=== PATIENT | female | born 1985 | race Caucasian/White ===

== ENCOUNTER 2022-02-06 10:55 | Observation (INO) | payer OTHER ==
[~2022-02-06 10:55] MED LIST: Iopamidol 300 61% 100 ML VIAL FS ONE
[2022-02-06 11:32] LABS: Bilirubin Neg (Negative); Blood, Urine 10 (Negative); Glucose, Urine (Dipstick) Normal (Negative); Ketone, Urine Negative (Negative); Leukocyte 25 (Negative); Nitrite Negative (Negative); Protein, Urine (Dipstick) Negative (Neg-Trace)
[2022-02-06] MEDS ORDERED: Ketorolac Tromethamine 30 MG/ML VIAL ONE (11:33)
[2022-02-06] MEDS ORDERED: Ondansetron PF 4 MG/2 ML Vial ONE (11:33)
[2022-02-06 11:34] LABS: Clarity Hazy (Clear)
[2022-02-06 11:35] LABS: Pregnancy Test - Urine (BHCG) Negative (Negative); Pregu Control Background? CLEAR/WHITE (CLR/WHITE); Pregu Control Bar Appear? YES (CONTROL BAR)
[2022-02-06 11:38] LABS: Squamous Epithelial 0-3 HPF (0-3)
[2022-02-06 11:39] LABS: Bacteria/HPF 2+ HPF (None Seen); Mucous/LPF 2+ LPF (<2+)
[2022-02-06 11:47] LABS: #Basophils 0.1 10x3/uL (0.0-0.2); #Eosinphils 0.1 10x3/uL (0.0-0.5); #Monocytes 1.1 10x3/uL (0.0-1.1); #Neutrophils 6.8 10x3/uL (1.5-8.4); %Basophils 0.9 % (0.0-2.0); %Eosinophils 1.4 % (0.0-6.0); %Lymphocytes 10.3 % (18.0-47.0); %Monocytes 12.3 % (0.0-10.0); %Neutrophils 74.9 % (40.0-75.0); Hemoglobin 10.4 g/dL (12.0-15.5); Mean Corpuscular HGB CONC 31.7 g/dL (32.0-36.0); Mean Corpuscular Hemoglobin 24.5 pg (27.0-33.0); Mean Corpuscular Volume 77.4 fl (81.6-98.3); Mean Platelet Volume 9.2 fl (7.4-10.4); Platelet Count 372 10x3/uL (150-450); RBC Distribution Width 15.4 % (11.5-14.5); Red Blood Cell (RBC) Count 4.24 10x6/uL (3.90-5.03); White Blood Cell (WBC) Count 9.1 10x3/uL (3.5-10.5)
[2022-02-06 11:51] LABS: BHCG - Serum Negative (NEGATIVE)
[2022-02-06 11:52] LABS: Pregs Control Background? CLEAR/WHITE (CLR/WHITE); Pregs Control Bar Appear? YES (CONTROL BAR)
[2022-02-06 12:00] LABS: ALT (SGPT) 11 U/L (8-55); AST (SGOT) 19 U/L (5-34); Albumin 4.5 g/dL (3.5-5.0); Alkaline Phosphatase 41 U/L (40-110); Anion Gap 12 mmol/L (10-20); BUN (Urea Nitrogen) 9 mg/dL (7.0-18.7); Bilirubin, Total 0.4 mg/dL (0.2-1.2); Calc. Creatinine Clearance 0 mL/min (70-130); Calcium 8.9 mg/dL (7.8-10.44); Carbon Dioxide 26 mmol/L (22-29); Chloride 104 mmol/L (98-107); Estimated GFR 116; Globulin 2.7 g/dL (2.4-3.5); Glucose 99 mg/dL (70-105); Lipase 21 U/L (8-78); Potassium 3.7 mmol/L (3.5-5.1); Protein, Total 7.2 g/dL (6.0-8.3); Sodium 138 mmol/L (136-145)
[2022-02-06] MEDS ORDERED: Morphine 4 MG/ML VIAL ONE (12:37)
[2022-02-06 16:42] VITALS: TEMP 97.9
[2022-02-06 16:51] VITALS: BP 104/54
[2022-02-06 17:24] VITALS: BMI 23.3
[2022-02-06] MEDS ORDERED: FLU VACC QS2022-23(6MOS UP)/PF 60 MCG/0.5 ML SYRINGE IM ONE (17:30)
[2022-02-06] MEDS ORDERED: Ketorolac Tromethamine 30 MG/ML VIAL IM SCH (17:30)
== END 2022-02-06 17:44 | disposition home or self-care (01) ==
LOC: CSHERS 10:55 → CSHPP 16:22
PROVIDERS: ADMIT Obstetrics & Gynecology; ATTEND Student in an Organized Health Care Education/Training Program
DX: N83.201 Unspecified ovarian cyst, right side (principal); D50.8 Other iron deficiency anemias; N39.0 Urinary tract infection, site not specified; G43.909 Migraine, unspecified, not intractable, without status migrainosus; Z79.899 Other long term (current) drug therapy; Z88.8 Allergy status to other drugs, medicaments and biological substances; Z98.890 Other specified postprocedural states
CPT/HCPCS: 74177; 76856; 80053; 81003; 81015; 81025; 83690; 84703; 85025; 96374; 96375; G0378; J1885; J2270; J2405; Q9967

== ENCOUNTER 2022-02-07 00:39 | Observation (INO) | payer OTHER ==
[2022-02-07] MEDS ORDERED: Ondansetron ODT 4 MG TAB ONE (01:46)
[2022-02-07 02:05] LABS: #Basophils 0.1 10x3/uL (0.0-0.2); #Monocytes 0.7 10x3/uL (0.0-1.1); #Neutrophils 4.7 10x3/uL (1.5-8.4); %Basophils 0.8 % (0.0-2.0); %Eosinophils 0.5 % (0.0-6.0); %Lymphocytes 10.4 % (18.0-47.0); Hemoglobin 9.3 g/dL (12.0-15.5); Mean Corpuscular HGB CONC 31.5 g/dL (32.0-36.0); Mean Corpuscular Hemoglobin 24.4 pg (27.0-33.0); Mean Corpuscular Volume 77.4 fl (81.6-98.3); Mean Platelet Volume 8.9 fl (7.4-10.4); Platelet Count 281 10x3/uL (150-450); RBC Distribution Width 15.3 % (11.5-14.5); Red Blood Cell (RBC) Count 3.81 10x6/uL (3.90-5.03); White Blood Cell (WBC) Count 6.2 10x3/uL (3.5-10.5)
[2022-02-07 02:16] LABS: ALT (SGPT) 12 U/L (8-55); AST (SGOT) 19 U/L (5-34); Albumin 3.9 g/dL (3.5-5.0); Alkaline Phosphatase 37 U/L (40-110); Anion Gap 10 mmol/L (10-20); BUN (Urea Nitrogen) 8 mg/dL (7.0-18.7); Bilirubin, Total 0.4 mg/dL (0.2-1.2); Calc. Creatinine Clearance 0 mL/min (70-130); Calcium 8.5 mg/dL (7.8-10.44); Carbon Dioxide 25 mmol/L (22-29); Chloride 104 mmol/L (98-107); Estimated GFR 116; Globulin 2.4 g/dL (2.4-3.5); Glucose 140 mg/dL (70-105); Potassium 3.2 mmol/L (3.5-5.1); Protein, Total 6.3 g/dL (6.0-8.3); Sodium 136 mmol/L (136-145)
[2022-02-07] MEDS ORDERED: Ketorolac Tromethamine 30 MG/ML VIAL ONE (04:07)
[2022-02-07] MEDS ORDERED: Ondansetron PF 4 MG/2 ML Vial IVP PRN (10:02)
[2022-02-07] MEDS ORDERED: Ibuprofen 600 MG TAB PO PRN (10:10)
[2022-02-07 10:46] VITALS: BMI 23.3
[2022-02-07] MEDS ORDERED: Morphine 2 MG/ML VIAL SLOW IVP PRN (11:09)
[2022-02-07] MEDS: Lactated Ringer's 1,000 ML IV SCH (11:22)
[2022-02-07] MEDS ORDERED: Potassium Chloride 20 MEQ TAB PO SCH (12:00)
[2022-02-07] MEDS ORDERED: Morphine 4 MG/ML VIAL SLOW IVP SCH (12:00)
[2022-02-07] MEDS ORDERED: cefTRIAXone\\ROCEPHIN 1 GM in Sodium Chloride 0.9% 100 ML IVPB SCH (12:00)
[2022-02-08] MEDS: Lactated Ringer's 1,000 ML IV SCH (00:15)
[2022-02-08 04:30] LABS: #Basophils 0.1 10x3/uL (0.0-0.2); #Eosinphils 0.1 10x3/uL (0.0-0.5); #Monocytes 0.7 10x3/uL (0.0-1.1); #Neutrophils 2.3 10x3/uL (1.5-8.4); %Lymphocytes 35.8 % (18.0-47.0); %Monocytes 14.9 % (0.0-10.0); %Neutrophils 46.1 % (40.0-75.0); Hemoglobin 9.2 g/dL (12.0-15.5); Mean Corpuscular HGB CONC 31.3 g/dL (32.0-36.0); Mean Corpuscular Hemoglobin 24.5 pg (27.0-33.0); Mean Corpuscular Volume 78.2 fl (81.6-98.3); Mean Platelet Volume 9.2 fl (7.4-10.4); Platelet Count 266 10x3/uL (150-450); RBC Distribution Width 15.6 % (11.5-14.5); Red Blood Cell (RBC) Count 3.76 10x6/uL (3.90-5.03); White Blood Cell (WBC) Count 4.9 10x3/uL (3.5-10.5)
[2022-02-08 04:33] LABS: Anion Gap 10 mmol/L (10-20); Carbon Dioxide 26 mmol/L (22-29); Chloride 108 mmol/L (98-107); Potassium 4.4 mmol/L (3.5-5.1); Sodium 140 mmol/L (136-145)
[2022-02-08 07:33] VITALS: BP 112/57; TEMP 98
== END 2022-02-08 11:09 | disposition home or self-care (01) ==
LOC: CSHERS 00:39 → CSHPP 08:06 → INTOOBSV 09:29
PROVIDERS: ADMIT Obstetrics & Gynecology; ATTEND Obstetrics & Gynecology
DX: N83.201 Unspecified ovarian cyst, right side (principal); N39.0 Urinary tract infection, site not specified; E87.6 Hypokalemia; R10.2 Pelvic and perineal pain; G43.909 Migraine, unspecified, not intractable, without status migrainosus; Z88.6 Allergy status to analgesic agent; Z79.899 Other long term (current) drug therapy
CPT/HCPCS: 36415; 76856; 80051; 80053; 85025; 96372; 96374; 96375; G0378; J0696; J1885; J2405; J3490; J7120; Q0162

== ENCOUNTER 2022-07-27 14:31 | Emergency (ER) | payer BC, OTHER ==
[2022-07-27] MEDS ORDERED: Triamcinolone 40 MG/ML VIAL IM SCH (16:00)
[2022-07-27] MEDS ORDERED: Betamet Acet/Betamet Na Ph 30 MG/5 ML VIAL IM SCH (16:00)
== END 2022-07-27 16:22 | disposition home or self-care (01) ==
LOC: CSHERS 14:31
DX: L23.7 Allergic contact dermatitis due to plants, except food (principal); F17.210 Nicotine dependence, cigarettes, uncomplicated
CPT/HCPCS: 99282; J0702; J3301